=== PATIENT | male | born 1965 | race Caucasian/White ===

== ENCOUNTER 2016-10-01 12:45 | Emergency (ER) | payer BC ==
[2016-10-01 13:27] VITALS: BP 132/76
--- NOTE | 2016-10-01 13:30 | UC ---
Shortness of Breath HPI - HPI Summary HPI Summary: 51 year old male with complaints of shortness of breath on and off for 2 weeks. States he noticed it first while trying to deer [place]. Last night symptoms became worse he was unable to lay down flat in bed to sleep. He tried to go to work this am but shortness of breath continues. He denies any chest pain or difficulty breathing at this time. 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 - Onset/Duration: Gradual Onset, Lasting Weeks - 2, Still Present Current Severity: Moderate Dyspnea At: Rest - and sitting up Aggrevating Factors: Recumbent Position, Nothing - exertion Alleviating Factors: Upright Position, Nothing Associated Signs & Symptoms: Negative: Cough (Productive), Cough (Nonproductive) , Cough (Bloody Sputum), Wheezing, Chest Pain w/Cough, Chest Pain Unrelated to Cough, Fever, Chills, Diaphoresis, Nasal Congestion, Dizzy, Calf Pain/Swelling, Edema - Risk Factors Pulmonary Embolism: Smoking Cardiac: Smoking Pseudomonas: Negative Tuberculosis: Smoking PMH/Surg Hx/FS Hx/Imm Hx Previously Healthy: Yes Endocrine History Of: Denies: Diabetes Cardiovascular History Of: Denies: Cardiac Disorders Respiratory History Of: Denies: COPD, Asthma - Family History Known Family History: Positive: Hypertension Negative: Diabetes - Social History Occupation: Employed Full-time Lives: With Family Substance Use Type: None Review of Systems Constitutional: Negative Skin: Negative Eyes: Negative ENT: Negative Respiratory: Shortness Of Breath, Cough Cardiovascular: Negative Gastrointestinal: Negative Genitourinary: Negative Motor: Negative Neurovascular: Negative Musculoskeletal: Negative Neurological: Negative Psychological: Negative All Other Systems Reviewed And Are Negative: Yes Physical Exam Triage Information Reviewed: Yes Appearance: No Pain Distress, Well-Nourished, Ill-Appearing - mildly Vital Signs Reviewed: Yes Eyes: Positive: Conjunctiva Clear. Negative: Discharge ENT: Positive: Hearing grossly normal. Negative: Nasal congestion Neck: Positive: Supple, Nontender Respiratory: Positive: Lungs clear, Normal breath sounds. Negative: Crackles, Wheezing Cardiovascular: Positive: No Murmur, Tachycardia - 160 Abdomen Description: Positive: Nontender, No Organomegaly, Soft. Negative: Distended, Guarding Musculoskeletal: Positive: Strength Intact - ambulatory upon arrival, ROM Intact - all 4 extremities, No Edema - no pedal edema Neurological: Positive: Alert, Muscle Tone Normal Psychological: Positive: Age Appropriate Behavior - pleasant and cooperative Skin: Negative: rashes, breakdown Shortness of Breath Dx - Course Course Of Treatment: EKG. transfer via ambulance to [facility] - Differential Dx/Diagnosis Differential Diagnosis/HQI/PQRI: Bronchitis Provider Diagnoses: Atrial Flutter rate of 160 - Physician Notification/Consults Discussed Patient Care With: with Piedad Mora. Phone call to Dr. Marlene Schaffer at [facility] Instructed by Provider To: Transfer - to [facility] via ambulance Discharge - Discharge Plan Condition: Stable Disposition: [facility] OF CARE FAC Patient Education Materials: Atrial Flutter (ED)
== END 2016-10-01 13:45 | disposition short-term general hospital (02) ==
LOC: UCCORT 12:45
DX: I48.92 Unspecified atrial flutter (principal)
CPT/HCPCS: 93005; 99203; G0463